=== PATIENT | female | born 1980 | race Asian ===

== ENCOUNTER 2019-07-02 23:20 | Emergency (ER) | payer BC ==
[~2019-07-02] VITALS: Ht 160 cm; Wt 77.6 kg
[2019-07-02 23:25] VITALS: BP_SYST 141
--- NOTE | 2019-07-02 23:30 | NUR ---
Patient to ER bed 2 to gown for evaluation. Side rails up. Report given to JUAN MANUEL MONTES DE OCA/TIMOTHY MONTES DE OCA.
--- NOTE | 2019-07-02 23:40 | NUR ---
Patient brought in with complaining of vaginal bleeding x 6 hours with blood clots and lower abdominal cramping. Patient called OBGYN, Dr. Melchor, and was referred to ED for possible miscarriage. Patient is A2 states 10 weeks . Patient reports saturating pads every 30 mins. Pain 0/10. No other complaints/injuries per patient or as noted. Will continue to monitor.
[2019-07-02] MEDS: NACL 0.9% 1,000 ML IV ONE (23:45)
--- NOTE | 2019-07-03 00:05 | NUR ---
Attempted IV bloodraw and access, single attempt interrupted by patient and asking to stop. Attempt concluded per request of pt. IV unsuccessful. Pt refused Iv access and fluids.
--- NOTE | 2019-07-03 00:26 | NUR ---
ER Dr. PETE at bedside examining patient.
--- NOTE | 2019-07-03 00:31 | NUR ---
PATIENT SPOKE TO DR EPTE. PATIENT AWARE THAT MD ORDERED IV ACCESS AND FLUIDS. PATIENT STATES THAT SHE DOES NOT WANT AN IV LINE "BECAUSE IT HURTS." MD NOTIFIED.
[2019-07-03 00:41] LABS: BASOPHILS % (AUTO) 0.4 % (0.0-2.0); EOSINOPHILS # (AUTO) 0.1 K/uL (0.0-0.4); EOSINOPHILS % (AUTO) 2.6 % (0.0-4.0); HEMOGLOBIN 10.1 g/dL (12.0-16.0); LYMPHOCYTES # (AUTO) 1.1 K/uL (1.0-5.5); LYMPHOCYTES % (AUTO) 26.9 % (20.5-51.5); MEAN CORPUSCULAR HEMOGLOBIN 28 pg (27-31); MEAN CORPUSCULAR HGB CONC 34 % (32-36); MEAN CORPUSCULAR VOLUME 82 fL (79.0-98.0); MONOCYTES # (AUTO) 0.6 K/uL (0.0-1.0); MONOCYTES % (AUTO) 14.6 % (1.7-9.3); NEUTROPHILS # (AUTO) 2.2 K/uL (1.8-7.7); NEUTROPHILS % (AUTO) 55.5 % (40.0-70.0); PLATELET COUNT (AUTO) 218 K/uL (130-430); RED BLOOD CELL COUNT(AUTO) 3.68 MIL/uL (4.2-6.2); RED CELL DISTRIBUTION WIDTH 17.3 % (9.0-15.0)
--- NOTE | 2019-07-03 00:43 | NUR ---
[facility].
--- NOTE | 2019-07-03 02:04 | NUR ---
md at bedside discussing results.
[2019-07-03] MEDS: ACETAMINOPHEN 325 MG TABLET PO ONE (02:27)
[2019-07-03 02:30] VITALS: BP_SYST 138
--- NOTE | 2019-07-03 02:30 | NUR ---
Patient given written and verbal discharge instructions and verbalizes understanding. ER MD discussed with patient the results and treatment provided. Patient in stable condition. ID arm band removed. Rx of tylenol given. Patient educated on pain management and to follow up with PMD in 2-3 days. Pain Scale 0/10 Opportunity for questions provided and answered. Medication side effect fact sheet provided.
[2019-07-03] MEDS ORDERED: GLUXR500 PO ×2 (04:29→05:19)
[2019-07-03] MEDS ORDERED: NIFE-2 PO (05:19)
[2019-07-03] MEDS ORDERED: ALD250 PO (05:19)
== END 2019-07-03 02:30 | disposition home or self-care (01) ==
LOC: SED 23:20
DX: O03.9 Complete or unspecified spontaneous abortion without complication (principal)
CPT/HCPCS: 36415; 76801; 76817; 84702-TC; 85025; 86900; 86901; 99284

== ENCOUNTER 2019-07-03 04:08 | Observation (INO) | payer BC ==
[~2019-07-03] VITALS: Ht 160 cm; Wt 76.7 kg
[2019-07-03 04:10] VITALS: BP_SYST 112
[2019-07-03] MEDS ORDERED: GLUXR500 PO ×2 (04:29→05:19)
[2019-07-03] MEDS ORDERED: NACL 0.9% 1,000 ML IV ONE (05:00)
[2019-07-03] MEDS ORDERED: NIFE-2 PO (05:19)
[2019-07-03] MEDS ORDERED: ALD250 PO (05:19)
[2019-07-03] MEDS ORDERED: OXYTOCIN/0.9 % SODIUM CHLORIDE 1,000 ML IV SCH (05:30)
[2019-07-03 05:31] LABS: BASOPHILS % (AUTO) 0.5 % (0.0-2.0); EOSINOPHILS # (AUTO) 0.1 K/uL (0.0-0.4); EOSINOPHILS % (AUTO) 1.4 % (0.0-4.0); HEMATOCRIT 25.9 % (36-48); HEMOGLOBIN 8.8 g/dL (12.0-16.0); LYMPHOCYTES # (AUTO) 0.8 K/uL (1.0-5.5); LYMPHOCYTES % (AUTO) 15.9 % (20.5-51.5); MEAN CORPUSCULAR HEMOGLOBIN 28 pg (27-31); MEAN CORPUSCULAR HGB CONC 34 % (32-36); MEAN CORPUSCULAR VOLUME 82 fL (79.0-98.0); MONOCYTES # (AUTO) 0.5 K/uL (0.0-1.0); NEUTROPHILS # (AUTO) 3.6 K/uL (1.8-7.7); NEUTROPHILS % (AUTO) 72.2 % (40.0-70.0); PLATELET COUNT (AUTO) 198 K/uL (130-430); RED BLOOD CELL COUNT(AUTO) 3.16 MIL/uL (4.2-6.2); RED CELL DISTRIBUTION WIDTH 17.2 % (9.0-15.0)
[2019-07-03 06:15] VITALS: BP_SYST 118
[2019-07-03] MEDS ORDERED: fentaNYL CITRATE/PF 100 MCG/2 ML AMP IVP ONE (07:15)
[2019-07-03] MEDS ORDERED: ONDANSETRON HCL 4 MG/2 ML VIAL IVP ONE (07:15)
[2019-07-03] MEDS ORDERED: KETOROLAC TROMETHAMINE 30 MG VIAL IVP ONE (07:15)
[2019-07-03] MEDS ORDERED: MIDAZOLAM HCL 5 MG/5 ML VIAL IVP ONE (07:15)
[2019-07-03] MEDS ORDERED: NS 500 ML IV.SOLN IV ONE (07:15)
[2019-07-03] MEDS ORDERED: CEFAZOLIN 2 GM IVPB PREMIX 50 ML IV ONE (07:15)
[2019-07-03] MEDS ORDERED: PROPOFOL 200MG/ 20ML VIAL (DIPRIVAN) IV ONE (07:15)
[2019-07-03] MEDS ORDERED: SEVOFLURANE 15 MIN GAS INH ONE (07:15)
[2019-07-03 07:32] LABS: PROTHROMBIN TIME 10.5 SECS (9.5-12.5)
[2019-07-03 07:33] LABS: BILIRUBIN,URINE NEGATIVE (NEGATIVE); BLOOD, URINE 4+ (NEGATIVE); CLARITY/URINE SLIGHTLY CLOUDY (CLEAR); COLOR,URINE RED (YELLOW); GLUCOSE,URINE NEGATIVE (NEGATIVE); KETONES,URINE NEGATIVE (NEGATIVE); LEUKOCYTE ESTERASE ,URINE 1+ (NEGATIVE); PROTEIN URINE 3+ (NEGATIVE)
[2019-07-03 07:34] LABS: NITRITE, URINE POSITIVE (NEGATIVE); UROBILINOGEN,URINE 0.2 (0.2-1.0)
[2019-07-03 07:37] LABS: BACTERIA,URINE FEW /HPF (None Seen); RBC,URINE >100 /HPF (0-3)
[2019-07-03] MEDS ORDERED: fentaNYL CITRATE/PF 100 MCG/2 ML AMP IVP PRN ×2 (07:45)
[2019-07-03] MEDS ORDERED: ONDANSETRON HCL 4 MG/2 ML VIAL IVP PRN (07:45)
[2019-07-03] MEDS ORDERED: KETOROLAC TROMETHAMINE 30 MG VIAL IVP PRN (07:45)
[2019-07-03] MEDS ORDERED: ONDANSETRON HCL 4 MG/2 ML VIAL IM PRN (08:00)
[2019-07-03] MEDS ORDERED: HYDROcodone/ACETAMIN 5-325 MG TAB (NORCO/ VICODIN) PO PRN (08:00)
[2019-07-03] MEDS ORDERED: OXYTOCIN IV SCH (08:00)
[2019-07-03] MEDS ORDERED: NACL 0.9% IV SCH (08:00)
[2019-07-03] MEDS ORDERED: OXYTOCIN/0.9 % SODIUM CHLORIDE 1,000 ML IV ONE (08:50)
[2019-07-03 15:31] VITALS: BP_SYST 119
[2019-07-03] MEDS ORDERED: NIFEDIPINE 30 MG TAB.ER.24 PO SCH (21:00)
[2019-07-03] MEDS ORDERED: METHYLDOPA 250 MG TABLET (ALDOMET) PO SCH (21:00)
== END 2019-07-03 17:25 | disposition home or self-care (01) ==
LOC: SED 04:08 → STU 05:25
PROVIDERS: ADMIT Specialist; ATTEND Specialist
DX: O03.4 Incomplete spontaneous abortion without complication (principal); O99.011 Anemia complicating pregnancy, first trimester; O26.891 Other specified pregnancy related conditions, first trimester; R55 Syncope and collapse; Z3A.10 10 weeks gestation of pregnancy
CPT/HCPCS: 36415; 71045; 81000-TC; 82550-TC; 82962; 84484; 85025; 85610-TC; 86886; 86900; 86901; 87081; 88305; 93005; 96360; 99285; G0378; J0690; J1885; J2250; J2405; J2590; J2704; J3010; J7030; J7040